=== PATIENT | male | born 1990 | race Caucasian/White ===

== ENCOUNTER 2018-08-02 20:14 | Emergency (ER) | payer OTHER, SELFPAY ==
[~2018-08-02] VITALS: Ht 170.2 cm; Wt 76.8 kg
[2018-08-02 20:17] VITALS: BP 154/68
[2018-08-02] MEDS ORDERED: LIDOCAINE-MPF 1%, 5ML INFIL ONE (20:30)
[2018-08-02] MEDS ORDERED: CEFTRIAXONE 1,000 MG ONE (20:46)
[2018-08-02] MEDS ORDERED: SULFAMETH./TRIMETHOPRIM DS 800MG/160MG TABLET ONE (20:46)
[2018-08-02] MEDS ORDERED: SULFAMETH./TRIMETHOPRIM DS 800MG/160MG TABLET PO ONE (21:00)
[2018-08-02] MEDS ORDERED: CEFTRIAXONE 1,000 MG IM ONE (21:00)
== END 2018-08-02 21:17 | disposition home or self-care (01) ==
LOC: ED 21:11
DX: T63.301A Toxic effect of unspecified spider venom, accidental (unintentional), initial encounter (principal); L03.116 Cellulitis of left lower limb; Y93.89 Activity, other specified; Y99.8 Other external cause status; Y92.89 Other specified places as the place of occurrence of the external cause
CPT/HCPCS: 96372; 99283; J0696

== ENCOUNTER 2020-12-25 16:05 | Emergency (ER) | payer MEDICAID, OTHER ==
[~2020-12-25] VITALS: Ht 182.9 cm; Wt 73.0 kg
--- NOTE | 2020-12-25 16:18 | NUR ---
[email or web address]
[2020-12-25 16:36] VITALS: BP 161/94
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
--- NOTE | 2020-12-25 17:00 | NUR ---
xray at bedside
[2020-12-25] MEDS ORDERED: HYDROmorphone 2 MG/ML, 1ML ONE (17:31)
--- NOTE | 2020-12-25 17:54 | NUR ---
With reassessment pain now relieved to 1/10, cms remain intact Erp made aware of xray results
[2020-12-25] MEDS ORDERED: HYDROmorphone 1 MG/ML, 1ML INJ IV ONE (18:00)
--- NOTE | 2020-12-25 19:35 | NUR ---
POST SPLINT/SLING APPLICATION CMS INTACT REVIEWED [facility]. [facility] ASSESSMENTS. NECCESITY OF F/U, USE OF rice. TEACH BACK SUCCESSFUL DISCHARGED IN CARE OF SPOUSE
== END 2020-12-25 19:38 | disposition home or self-care (01) ==
LOC: ED 19:32
DX: S52.032A Displaced fracture of olecranon process with intraarticular extension of left ulna, initial encounter for closed fracture (principal); S52.122A Displaced fracture of head of left radius, initial encounter for closed fracture; W18.30XA Fall on same level, unspecified, initial encounter; Y93.89 Activity, other specified; Y92.410 Unspecified street and highway as the place of occurrence of the external cause; Y99.8 Other external cause status
CPT/HCPCS: 73080; 96374; 99283; J1170

== ENCOUNTER 2021-01-01 12:54 | Day surgery (SDC) | payer MEDICAID, OTHER ==
[~2021-01-01] VITALS: Ht 182.9 cm; Wt 77.0 kg
[~2021-01-01 12:54] MED LIST: FENTANYL PF 250 MCG/5ML ONE; MIDAZOLAM 1 MG/ML, 2ML ONE
[2021-01-01 13:28] VITALS: BP 116/74
[2021-01-01] MEDS ORDERED: CHLORHEXIDINE 15 ML UDC PO ONE (13:30)
[2021-01-01] MEDS ORDERED: PLEASE ENTER HEIGHT AND WEIGHT MC SCH (13:30)
[2021-01-01] MEDS ORDERED: LACTATED RINGERS 1,000 ML IV SCH (13:30)
[2021-01-01] MEDS ORDERED: OXYC1TAB12 PO (13:40)
[2021-01-01] MEDS ORDERED: NEOSPORIN OINT, 15GM ONE (13:48)
[2021-01-01] MEDS ORDERED: BUPIVACAINE/PF 0.5% ONE (13:48)
[2021-01-01] MEDS ORDERED: FENTANYL PF 250 MCG/5ML ONE (16:07)
[2021-01-01] MEDS ORDERED: HYDROmorphone 1 MG/ML, 1ML INJ IVPush PRN (16:30)
[2021-01-01] MEDS ORDERED: ALBUTEROL SULFATE 2.5 MG/3 ML NPPB PRN (16:30)
[2021-01-01] MEDS ORDERED: KETOROLAC 30 MG/1 ML IV PRN (16:30)
[2021-01-01] MEDS ORDERED: DIPHENHYDRAMINE 50 MG/ML, 1ML IVPush PRN (16:30)
[2021-01-01] MEDS ORDERED: LABETALOL 5MG/ML, 20ML IV PRN (16:30)
[2021-01-01] MEDS ORDERED: MEPERIDINE/PF 25MG/0.5ML IVPush PRN (16:30)
[2021-01-01] MEDS ORDERED: PROMETHAZINE 25 MG/ML, 1ML IVPush PRN (16:30)
[2021-01-01] MEDS ORDERED: OXYcodone 5 MG/5 ML ORAL.SOL UDC PO PRN (16:30)
[2021-01-01] MEDS ORDERED: OXYC5TAB98 PO ×2 (16:43→16:47)
[2021-01-01] MEDS ORDERED: OXYcodone 5 MG/5 ML ORAL.SOL UDC ONE (16:54)
[2021-01-01] MEDS ORDERED: FENTANYL PF 100 MCG/2ML ONE (17:11)
[2021-01-01] MEDS: FENTANYL PF 100 MCG/2ML IV PRN ×2 (17:13→17:26)
[2021-01-01] MEDS ORDERED: KETOROLAC 30 MG/1 ML ONE (17:27)
[2021-01-01] MEDS ORDERED: METHOCARBAMOL 1,000 MG in DEXTROSE 5% 100 ML IV PRN (17:30)
[2021-01-01] MEDS ORDERED: ACETAMINOPHEN 325 MG TABLET PO PRN (17:30)
== END 2021-01-01 18:40 | disposition home or self-care (01) ==
LOC: OUT 12:54
PROVIDERS: ATTEND Orthopaedic Surgery
DX: S52.022A Displaced fracture of olecranon process without intraarticular extension of left ulna, initial encounter for closed fracture (principal); S52.122A Displaced fracture of head of left radius, initial encounter for closed fracture; F41.1 Generalized anxiety disorder; Z20.822 Contact with and (suspected) exposure to COVID-19; Z79.899 Other long term (current) drug therapy; W01.0XXA Fall on same level from slipping, tripping and stumbling without subsequent striking against object, initial encounter; Y93.51 Activity, roller skating (inline) and skateboarding; Y92.89 Other specified places as the place of occurrence of the external cause; Y99.8 Other external cause status
CPT/HCPCS: 24655; 24685; 64415; 73080; 87635; C1713; J1885; J2250; J2800; J3010; J7120; 76000